=== PATIENT | male | born 1950 ===

== ENCOUNTER → 2023-12-11 10:50 | Outpatient (REF) | payer MEDICARE, SELFPAY | LOC: HWRAD 10:50 | PROVIDERS: ATTENDING PHYSICIAN Colon & Rectal Surgery; FAMILY PHYSICIAN Internal Medicine | DX: R19.5 Other fecal abnormalities (principal); K91.89 Other postprocedural complications and disorders of digestive system | CPT/HCPCS: 74263 ==

== ENCOUNTER → 2024-08-26 08:39 | Outpatient (REF) | payer MEDICARE, SELFPAY | LOC: HWRAD 08:39 | PROVIDERS: ATTENDING PHYSICIAN Colon & Rectal Surgery; FAMILY PHYSICIAN Internal Medicine; REFERRING PHYSICIAN Internal Medicine Hematology & Oncology | DX: D49.0 Neoplasm of unspecified behavior of digestive system (principal) | CPT/HCPCS: 74261 ==